=== PATIENT | female | born 1965 | race Caucasian/White ===

== ENCOUNTER 2018-01-11 22:50 | Emergency (ER) | payer BC ==
[~2018-01-11] VITALS: Ht 162.6 cm; Wt 102.7 kg
[~2018-01-11 22:50] MED LIST: BIOTPOW17 PO; SERT-234 PO; TPN; [UNRECOGNIZED DRUG - OTHER]
[2018-01-11 22:54] VITALS: TEMP 36.8; Ht 162.6 cm; Wt 102.7 kg
--- NOTE | 2018-01-11 23:35 | EMERGENCY ROOM VISIT NOTE ---
History Report prepared by Zia: Chandu Hanson Under the Supervision of: Dr. Chandni Kitchen D.O. First contact with patient: 23:05 Chief Complaint: RECTAL BLEEDING Stated Complaint: BLEEDING FROM RECTUM, COLD-FEVER, COUGH- REFERRED History of Present Illness The patient is a 52 year old female who presents to the Emergency Room with complaints of a constant hemorrhoid beginning two days ago. The patient states she went to the restroom two days ago and had bright red blood in the toilet bowl. She reports she had another episode yesterday. The patient notes she called her PCP this morning and was told to come to the ED if she had another episode today, and she did. She states she has a history of hemorrhoids, but they typically do not bleed. The patient reports she is not straining, her stool is soft, and the hemorrhoid drips blood. She notes she also has been experiencing an intermittent cough, fever, and sweating for the past three days. The patient states her was sick recently, and she would not have come to the ED for her cold symptoms alone. She denies bleeding into the underwear, standing or sitting for a long period of time, pain or discomfort to her rectum, receiving a flu shot, history of pneumonia, and a runny nose. The patient notes a history of gastric bypass surgery and pacemaker because she was bradycardic. Source of History: patient Onset: two days ago Position: other (rectum) Quality: other (hemorrhoid) Timing: constant Associated Symptoms: + fevers, + cough Note: Associated symptoms: bright red blood while defecating, soft stool, intermittent sweating Denies: straining, bleeding into the underwear, standing or sitting for a long period of time, pain or discomfort to her rectum, receiving a flu shot, a runny nose Review of Systems See HPI for pertinent positives & negatives. A total of 10 systems reviewed and were otherwise negative. Past Medical & Surgical Medical Problems: (1) Bronchitis (2) Pacemaker Surgical Problems: (1) H/O gastric bypass (2) History of cholecystectomy Family History Cancer Diabetes mellitus Gallbladder disease Heart disease Hypertension Kidney disease Kidney stones Seizures Social History Smoking Status: Never Smoker Smokeless Tobacco Use: No Alcohol Use: occasionally Marital Status: Housing Status: lives with significant other Occupation Status: employed Current/Historical Medications Scheduled Azithromycin (Zithromax), 250 MG PO DAILY Sertraline (Zoloft), 150 MG PO DAILY [Biotin], 500 MG PO DAILY Miscellaneous Medications [Erasmo] [Tpn] Allergies Coded Allergies: Sulfamethoxazole w/Trimethoprim (Verified Allergy, Unknown, ., 02/05/16) Morphine (Verified Adverse Reaction, Unknown, nausea, 02/05/16) Physical Exam Vital Signs Date Time Temp Pulse Resp B/P (MAP) Pulse Ox O2 Delivery O2 Flow Rate FiO2 01/12/18 00:03 68 18 126/71 95 01/11/18 22:54 36.8 74 20 150/80 96 Room Air Physical Exam HEENT: Head - normocephalic and atraumatic Pupils are equal, round, and reactive to light. Extraocular eye muscles are intact, and sclera are anicteric. Nose - moist nasal mucosa without discharge. Mouth - moist buccal mucosa. Oropharynx is nonerythematous with significant, thick, yellow mucus in the posterior oropharynx, and there is no tonsillar exudate or edema noted. Ears - Normal TMs bilaterally. Neck: Supple; no JVD, nuchal rigidity, cervical lymphadenopathy. Heart: Regular rate and rhythm. There is a normal S1 and S2 with no murmurs, clicks, or gallops appreciated. Lungs: Clear to auscultation bilaterally with no wheezes, rales, or rhonchi. Abdomen: Soft, completely nontender, nondistended, with good bowel sounds. There are no palpable pulsatile masses or hepatosplenomegaly. There is no guarding, rigidity, or rebound noted. Rectal: One small external hemorrhoid that is not bleeding. On digital exam she has multiple internal hemorrhoids with a blood clot. Extremities: No evidence of cyanosis, clubbing, or edema. There are easily palpable peripheral pulses. Skin: warm and dry with good turgor and no rashes. Medical Decision & Procedures ER Provider Diagnostic Interpretation: X-ray results as stated below per interpretation by me: Two View Chest X-Ray per my interpretation: pacemaker. No pulmonary infiltrate or pulmonary effusion. Medications Administered Medications (Trade) Dose Ordered Sig/Mark Anthony Route Start Time Stop Time Status Last Admin Dose Admin Azithromycin (Zithromax Tab) 500 mg NOW STAT PO 01/11/18 23:53 01/11/18 23:54 DC 01/11/18 23:59 500 MG Procedure 2353: Ordered Azithromycin 500mg PO ED Course 2310: Past medical records reviewed. The patient was evaluated in room A12B. A complete history and physical exam was performed. The patient went for a chest x-ray which was unremarkable. 2341: Upon reevaluation, the patient is resting comfortably. I discussed findings and results with the patient. She verbalized agreement of the treatment plan. The patient will be discharged home when she receives her medication. 2353: Ordered Azithromycin 500mg PO Medical Decision The patient is a 52 year old female who presents to the ED with a constant hemorrhoid beginning three days ago. Differential diagnosis includes bleeding hemorrhoids, lower GI bleeding, URI, pneumonia, bronchitis. This is a 52-year-old female patient who presents to the emergency department primarily for hemorrhoidal bleeding. Patient also mentions that she has been sick for the past 1 week with significant cough and persistent fever. On physical exam, the patient had one external hemorrhoid which was not bleeding. She did have palpable internal hemorrhoids on digital exam. As for the upper respiratory symptoms, the patient had a normal chest x-ray and still had significant yellow postnasal drip. Because she is still mounting a fever with a cough and a significant yellow, thick postnasal drip. I will start her on antibiotics. She was given a first dose of Zithromax and will continue a Z- Chencho. I have asked the patient to avoid straining at all. She should do warm soaks or sitz baths over the next couple of days. I have asked her to follow- up with her tree surgeon if the hemorrhoidal bleeding continues by Tuesday. If the bleeding becomes heavier at any time, she was directed to return here to the ER. Medication Reconcilliation Current Medication List: was personally reviewed by me Blood Pressure Screening Patient's blood pressure: Normal blood pressure Blood pressure disposition: Did not require urgent referral Impression Primary Impression: Bronchitis Additional Impression: Bleeding hemorrhoid Scribe Attestation The scribe's documentation has been prepared under my direction and personally reviewed by me in its entirety. I confirm that the note above accurately reflects all work, treatment, procedures, and medical decision making performed by me. Departure Information Dispostion Home / Self-Care Prescriptions Azithromycin (ZITHROMAX) 250 Mg Tab 250 MG PO DAILY, #4 TAB Prov: Chandni Kitchen D.O. 01/11/18 Referrals Starla Reyes D.O. (PCP) Forms HOME CARE DOCUMENTATION FORM, IMPORTANT VISIT INFORMATION, WORK / SCHOOL INSTRUCTIONS Patient Instructions Bronchitis Acute, Hemorrhoids, Hemorrhoids Self Care, [facility] Additional Instructions Rest. No excessive standing. Do warm soaks or sitz bath twice a day. Follow up on Tuesday with GI if the bleeding persists. zithromax - 1 tab. daily for next 4 days Problem Qualifiers
[2018-01-11] MEDS ORDERED: AMOXICILLIN/CLAVULANATE TAB 875 MG TAB PO ONE (23:45)
[2018-01-11] MEDS ORDERED: AZIT250T PO (23:52)
[2018-01-11] MEDS ORDERED: AZITHROMYCIN 250 MG TAB PO STA (23:53)
[2018-01-12 00:03] VITALS: BP 126/71; PULSE 68; O2SAT 95
--- NOTE | 2018-01-12 07:15 | DIAGNOSTIC IMAGING REPORT ---
CHEST 2 VIEWS ROUTINE CLINICAL HISTORY: 52 years-old Female presenting with cough. TECHNIQUE: PA and lateral views of the chest were obtained. COMPARISON: 07/27/2013. FINDINGS: Left subclavian pacer with leads to the right atrium and right ventricular apex. Cardiac silhouette normal in size. Lungs and pleural spaces clear. Osseous structures normal. Cholecystectomy clips noted. IMPRESSION: 1. No acute cardiopulmonary disease. Electronically signed by: Jose Lr M.D. 01/12/2018 7:14 AM Dictated Date/Time: 01/12/2018 7:13 AM
== END 2018-01-12 00:05 | disposition home or self-care (01) ==
LOC: C.EDB 22:50 → C.EDA 01-12 00:05
DX: J40 Bronchitis, not specified as acute or chronic (principal); K64.9 Unspecified hemorrhoids; Z83.3 Family history of diabetes mellitus; Z82.49 Family history of ischemic heart disease and other diseases of the circulatory system; Z82.0 Family history of epilepsy and other diseases of the nervous system; Z88.8 Allergy status to other drugs, medicaments and biological substances

== ENCOUNTER 2019-06-28 12:05 | Inpatient (IN) ==
--- NOTE | 2019-06-27 11:45 | Anesthesiology Consultation ---
Date of Service June 27, 2019 Assessment & Plan (1) Encounter for pre-operative examination: Chart Review Chart Review: Acceptable Risk for Surgery and Patient NOT seen in Pre Admission Testing Consults Requested none History Surgery Operation Date: 06/28/19 08:35 Proposed Procedures p Left Patella Fracture Open Reduction Internal Fixation - Jose Mckenzie MD Height/Weight Height: 5 ft 4 in Weight: 97.069 kg Allergies Allergy/AdvReac Type Severity Reaction Status Date / Time Bactrim Allergy Unknown . Verified 02/05/16 09:38 sulfamethoxazole Allergy Unknown DOES NOT Verified 06/27/19 11:11 EXACT REACTION trimethoprim Allergy Unknown . 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 SMYTH Anxiety Bradycardia Depression Past Family History Family History Son Diabetes Father Diabetes Grandmother (Maternal) Diabetes Grandfather (Paternal) Diabetes Other Cancer Heart disease Hypertension Kidney disease Past Surgical History Surgical History H/O exploratory laparotomy X 2 AFTER GASTRIC BYPASS History of anesthesia reaction SLOW TO WAKE UP History of bilateral tubal ligation History of carpal tunnel release RT/LEFT History of cholecystectomy History of colonoscopy History of endometrial ablation History of esophagogastroduodenoscopy (EGD) History of surgery REVERSAL GASTRIC BYPASS APRIL 2014 [facility] History of tooth extraction Hx of gastric bypass 2010 Social History Smoking Status: Never smoker Do You Dip or Chew Tobacco: No Hx Alcohol Use: Yes Alcohol type: beer alcohol intake frequency: a few times a month Hx Substance Use: No substance use type: does not use Testing Laboratory Results Laboratory Tests 06/26/19 06/26/19 15:36 15:36 WBC 9.51 Hgb 13.4 Hct 41.1 Plt Count 247 Sodium 139 Potassium 3.8 Chloride 108 H Carbon Dioxide 27 BUN 13 Creatinine 0.71 Glucose 87 Electrocardiogram Date: 06/27/19 Atrial-paced rhythm with prolonged AV conduction at rate of 90, low voltage QRS, when compared with ECG from 05/03/2009 rhythm is now paced. Stress Test Date: 02/21/14 Type: exercise Findings: + WNL Resting LV Function: normal Resting RWMA: + none Other Testing Devise interrogation 02/28/19 - Normal dual chamber pacemaker function. Stable pacing and sensing thresholds. DDD, lower rate 60 bpm and upper rate 150 bpm, atrially paced about 22%, 6 years of battery life left.
[~2019-06-28 12:05] MED LIST changes: -BIOTPOW17 PO; +CEFAZOLIN 2000MG 2,000 MG/15 ML SYR IV SCH; +LR 15ML/HR IV SCH; +LR 60ML/HR IV SCH; -SERT-234 PO; -TPN; -[UNRECOGNIZED DRUG - OTHER]
[2019-06-28] MEDS ORDERED: MIDAZOLAM HCL 1 MG/ML 2ML VIAL ONE (12:53)
--- NOTE | 2019-06-28 14:15 | History & Physical Bridge Note ---
Date of Service June 28, 2019 History & Physical Bridge Note I have examined the patient, reviewed the History & Physical and in the interval since the performance of the History & Physical I have noted the following changes of clinical significance: patient had a CT scan done which showed significant comminution of the inferior patella fracture fragment. Discussed with patient that this may not be amenable to fixation due to the comminution and her bone quality, in which case we will excised the inferior pole fragments and do a patellar tendon advancement. She understands and agrees with this plan. No changes to her medical history.
[2019-06-28] MEDS ORDERED: BUPIVACAINE 0.5 % 5 MG/1 ML PF 10ML VIAL ONE (14:29)
[2019-06-28] MEDS ORDERED: BUPIVACAINE/EPINEPHRINE 0.5% MPF 1:200,000 30 ML VIAL ONE (14:58)
[2019-06-28] MEDS ORDERED: ePHEDrine sulfate 50 MG/ML AMP IV PRN (15:09)
[2019-06-28] MEDS ORDERED: ATROPINE SULFATE 0.1 MG/ML 10ML SYR IV PRN (15:09)
[2019-06-28] MEDS ORDERED: ONDANSETRON INJ 2 MG/ML 2 ML VIAL ONE (15:40)
[2019-06-28] MEDS ORDERED: PROPOFOL IV EMULSION 10 MG/ML 20 ML VIAL IV ONE (15:40)
[2019-06-28] MEDS ORDERED: ePHEDrine sulfate 50 MG/ML AMP ONE (15:40)
[2019-06-28] MEDS ORDERED: PHENYLEPHRINE HCL 10 MG/ML VIAL ONE (15:40)
--- NOTE | 2019-06-28 16:25 | Fluoroscopy Report ---
FL knee LT 1 or 2V CLINICAL HISTORY: Left patellar fracture COMPARISON STUDY: 06/23/2019 FLUOROSCOPY TIME: 7 seconds. NUMBER OF FLUOROSCOPIC IMAGES: 2 FINDINGS: 2 fluoroscopic spot images reveal a patellar fracture. The inferior patellar fragment is no t visualized. IMPRESSION: Intraoperative fluoroscopic spot images demonstrating a patellar fracture. The inferior patellar fragment is not visualized Electronically signed by: Bhavin Tillman M.D. 06/28/2019 4:24 PM
--- NOTE | 2019-06-28 16:33 | Post Operative Brief Note ---
Immediate Post Op Note v1 Date of Surgery June 28, 2019 Pre & Post Diagnosis Operation Date: 06/28/19 08:35 Pre-Op Diagnosis: Left Comminuted Patella Fracture Post-Op Diagnosis: Left Comminuted Patella Fracture Procedure Operation Date: 06/28/19 08:35 Actual Procedures p Left Partial patellectomy, patellar tendon advancement and repair (Left) - Jose Mckenzie MD Surgeon Jose Mckenzie MD Rail [employer] Tabeler TIMOTEO Mcgee PA-C Estimated Blood Loss 50 Findings Consistent with Post-Op Diagnosis Fluids 1100 cc Anesthesia Type Spinal MAC Complications none Disposition Accompanied Patient To Recovery: No
[2019-06-28] MEDS ORDERED: DiphenhydrAMINE HCL 50 MG/ML VIAL IV PRN (16:47)
[2019-06-28] MEDS ORDERED: ALUMINUM/MAGNESIUM SUSP 30 ML UDC PO PRN (16:47)
[2019-06-28] MEDS ORDERED: ONDANSETRON INJ 2 MG/ML 2 ML VIAL IV PRN ×2 (16:47→22:02)
--- NOTE | 2019-06-28 17:07 | Anesthesiology Progress Note ---
Date of Service June 28, 2019 Anesthesia Post Procedure Vital Signs Vital Signs: Temp Pulse Pulse Resp BP Pulse Ox 06/28/19 17:00 71 16 133/86 96 06/28/19 16:50 60 15 123/62 100 06/28/19 16:43 36.4 C L 91 H 17 131/83 96 06/28/19 12:47 36.7 C 64 18 126/74 94 Pain Intensity Left Knee: Pain Intensity: 3 Transfer of Care Handoff Completed per policy Notes Mental Status: alert / awake / arousable and participated in evaluation Patient Amnestic to Procedure: Yes Nausea / Vomiting: adequately controlled Pain: adequately controlled Airway Patency, RR, SpO2: stable & adequate BP & HR: stable & adequate Hydration State: stable & adequate Neuraxial Anesthesia: was administered and sensory block is resolving Anesthetic Complications: no major complications apparent and Pt Satisfied with anesthetic care
--- NOTE | 2019-06-28 18:43 | Operative Report ---
Post Operative Report Pre & Post Diagnosis Operation Date: 06/28/19 08:35 Pre-Op Diagnosis: Left Comminuted Patella Fracture Post-Op Diagnosis: Left Comminuted Patella Fracture Procedure Operation Date: 06/28/19 08:35 Actual Procedures p Partial patellectomy with patellar tendon advancement and repair.(Left) - Jose Mckenzie MD Surgeon Jose Mckenzie MD Television Maintenance Man TIMOTEO Mcgee PA-C Estimated Blood Loss 50 Findings Consistent with Post-Op Diagnosis Specimens none Complications none Disposition Accompanied Patient To Recovery: Yes Disposition: Recovery Room Description of Procedure I was present during the entire procedure assisting with wound closure, dressing and brace application. Please see Dr. Mckenzie procedure note for specifics fo the case. I attest to the content of the Intraoperative Record and any orders documented therein. Any exceptions are noted below.
[2019-06-28] MEDS: SODIUM CHLORIDE 0.9% 1000ML 1,000 ML IV SCH (19:00)
[2019-06-28] MEDS: OXYCODONE/ACETAMINOPHEN 5mg/325mg TAB PO PRN (19:40)
[2019-06-28] MEDS: HYDROmorphone INJ 2 MG/ML SYR/VIAL IV PRN (20:38)
[2019-06-28] MEDS: ASPIRIN 81 MG ECTAB PO SCH (20:43)
[2019-06-28] MEDS: DOCUSATE SODIUM 100 MG CAP PO SCH (20:44)
[2019-06-28] MEDS: SERTRALINE HCL 50 MG TABLET PO SCH (20:44)
[2019-06-28] MEDS: CEFAZOLIN 2000MG 2,000 MG/15 ML SYR IV SCH (20:44)
[2019-06-28] MEDS ORDERED: ONDANSETRON INJ 2 MG/ML 2 ML VIAL IV STA (21:58)
[2019-06-28] MEDS ORDERED: METOCLOPRAMIDE HCL INJ 5 MG/ML 2 ML VIAL IV PRN (21:59)
[2019-06-28] MEDS ORDERED: ONDANSETRON HCL 8 MG in DEXTROSE 5% 50 ML IV PRN (22:19)
--- NOTE | 2019-06-28 23:59 | Operative Report ---
DATE OF OPERATION: 06/28/2019 PREOPERATIVE DIAGNOSIS: Comminuted left patellar fracture. POSTOPERATIVE DIAGNOSIS: Comminuted left patellar fracture. OPERATION PERFORMED: Partial patellectomy with patellar tendon advancement of the left knee. SURGEON: Jose Mckenzie M.D. HOLDER PILE DRIVING: Darius Mcgee PA-C ESTIMATED BLOOD LOSS: 50 mL. INTRAVENOUS FLUIDS: 1100 mL crystalloid. SPECIMENS: None. COMPLICATIONS: None. IMPLANTS: #2 [place] wire and a #2 FiberWire suture. INDICATIONS: Ms. Doan is a 53-year-old female who was working at a [employer] this past weekend when she slipped on what she believes was a piece of glass and fell directly onto her flexed left knee. She had immediate onset of pain and inability to extend her knee or ambulate. She was brought to the Emergency Room where x-rays demonstrated a patellar fracture with comminution of the inferior pole. I saw her in clinic and obtained a CT scan which showed a significant comminution of the inferior pole fragment. I had a long discussion with her about the risks and benefits of surgery, alternatives to surgery and expected outcomes. After reviewing all these, she elected to proceed with surgery. All questions were answered. Informed consent was signed. OPERATIVE FINDINGS: The inferior pole of the patella was comminuted with a large split in the sagittal plane as well as axial plane split to a smaller magnitude. The proximal fragment contained approximately 60-65% of articular surface. I therefore excised the inferior fragment and advanced her patellar tendon into the proximal pole of the patella. The retinaculum was torn medial and laterally. This was repaired with 0 Vicryl sutures. DESCRIPTION OF OPERATION: The patient was identified in the preoperative holding area Where her surgical site was marked. She was given a spinal by anesthesia and brought back to main operating room where she was placed on the operating room table and general anesthesia was administered. A bump was placed underneath the operative hip. All bony prominences were padded. Perioperative antibiotics were administered. She was prepped and draped in normal sterile fashion. Prior to incision, multidisciplinary time-out was called. All in the room were in agreement. We began by making a midline incision for a distance of approximately 10 cm starting from 2 cm above the superior pole of the patella and extending down to the tibial tubercle. We dissected down through subcutaneous tissues to the level of the fascia. There was immediate return of hematoma from the joint. This was evacuated with the suction. We then lifted full-thickness skin flaps above the fascia to expose the retinacular tear medially and laterally. The quadriceps and patellar tendon were exposed as was the fracture. We then carefully inspected the inferior pole of the patella. As stated above, there was extensive comminution to the point where I was concerned that we would not be able to get adequate bony fixation. Furthermore, she had adequate articular surface remaining on her proximal pole fragment. I felt it was in the patient's best interest to remove the comminuted inferior pole fragment and so this is what was done sharply. Once all bone fragments from the inferior pole had been removed, we then trimmed up the edges of the patellar tendon, which were very healthy. I then ran a #2 Denver wire in a running [place] fashion starting on the lateral aspect of the patellar tendon down for a distance of approximately 3 cm and then ran it back up the midportion of the patella with the suture exiting through the midportion of the patellar tendon. I then opened up the #2 FiberWire and placed this in similar fashion on the lateral aspect as well as with another limb ending up in the middle portion of the patellar tendon. Great care was taken to ensure that the [place] sutures were completely tensioned. I then used a drill bit to drill from the fractured portion of the proximal pole fragment up through the superior aspect of the patella. The drill was located just below the more superficial cortical surface where the drill bit came out through the quadriceps tendon. A small longitudinal incision was made in line with the quadriceps tendon fibers. A Hewson suture passer was used as well as the suture to pass the 2 middle sutures up through the patella and exiting the quad tendon. I then placed another drill hole, 1 medially and 1 laterally in a similar fashion, passed the other TigerWire, another FiberWire. At this point, a snap was used to tunnel underneath the quadriceps tendon and bring both limbs of both sutures out through the middle portion of the quadriceps tendon. The knee was then brought into full extension. With no tension on the repair, I then tied the sutures down sequentially, first the FiberWire, then the TigerWire. I then tied these sutures to each other for additional fixation. Next, the retinacular tear was repaired with multiple interrupted 0 Vicryl sutures in [id number] fashion. These were then cut. We then checked our repair. She could easily get to 60 degrees of knee flexion without any undue strain on the repair. At this point, the wound was irrigated with copious amounts of normal saline. The meticulous hemostasis was ensured. We did also irrigate with a dilute Betadine solution. I then ran the deep dermal layer with 2-0 Vicryl suture. A 3-0 Monocryl was used for the skin. 20 mL of 0.5% Marcaine with epinephrine was then injected in the subcutaneous tissues. She was then placed into a sterile dressing with Steri-Strips, Silverlon and a compressive wrap from the toes to the thigh. She was then placed in a hinged knee brace locked in full extension. The range of motion setting was adjusted from 0-30 degrees on the brace. The patient was then awoken from anesthesia and transferred to recovery room in stable condition. POSTOPERATIVE COURSE: The patient will be admitted overnight for pain control and monitoring. She will work with physical therapy tomorrow. She will be weightbearing as tolerated with a hinged knee brace locked in full extension for the next 6 weeks. For the first 2 weeks, she will be range of motion 0-30 degrees. For the next 2 weeks from weeks 2-4, she will be 0-60 degrees and from weeks 4-6 she will be from 60-90 degrees. After 6 weeks, she will be allowed 90-120 degrees and be able to unlock the brace. She will then be able to discontinue the brace after week 8. She will be on aspirin for DVT prophylaxis. I attest to the content of the Intraoperative Record and any orders documented therein. Any exception s are noted below.
[2019-06-29] MEDS: OXYCODONE/ACETAMINOPHEN 5mg/325mg TAB PO PRN ×2 (00:02→04:07)
[2019-06-29] MEDS: HYDROmorphone INJ 2 MG/ML SYR/VIAL IV PRN ×2 (02:07→06:35)
[2019-06-29] MEDS: SODIUM CHLORIDE 0.9% 1000ML 1,000 ML IV SCH ×3 (04:07→20:13)
[2019-06-29] MEDS: CEFAZOLIN 2000MG 2,000 MG/15 ML SYR IV SCH ×2 (04:07→13:12)
[2019-06-29] MEDS: ACETAMINOPHEN 500 MG TAB PO PRN ×2 (07:42→12:06)
--- NOTE | 2019-06-29 08:11 | Anesthesiology Progress Note ---
Date of Service June 29, 2019 Anesthesia Post Procedure Vital Signs Vital Signs: Temp Pulse Pulse Resp BP BP Pulse Ox 06/29/19 07:02 36.9 C 91 H 16 164/85 H 90 06/29/19 03:25 36.9 C 87 16 148/82 H 94 06/28/19 23:40 36.8 C 62 16 138/74 92 06/28/19 20:32 37 C 65 16 171/82 H 91 06/28/19 18:37 36.8 C 58 L 16 104/66 94 06/28/19 18:05 36.3 C L 06/28/19 18:02 60 15 144/78 H 96 06/28/19 17:31 36.5 C 60 15 121/81 95 06/28/19 17:15 36.7 C 60 16 103/77 96 06/28/19 17:00 71 16 133/86 96 06/28/19 16:50 60 15 123/62 100 06/28/19 16:43 36.4 C L 91 H 17 131/83 96 06/28/19 12:47 36.7 C 64 18 126/74 94 Pain Intensity Left Knee: Pain Intensity: 3 Notes Mental Status: alert / awake / arousable and participated in evaluation Patient Amnestic to Procedure: Yes Nausea / Vomiting: adequately controlled Pain: adequately controlled Airway Patency, RR, SpO2: stable & adequate BP & HR: stable & adequate Hydration State: stable & adequate Neuraxial Anesthesia: was administered and sensory block resolved Anesthetic Complications: no major complications apparent and Pt Satisfied with anesthetic care
[2019-06-29] MEDS: KETOROLAC 30 MG/ML VIAL IV PRN ×3 (08:28→21:27)
[2019-06-29] MEDS: DOCUSATE SODIUM 100 MG CAP PO SCH ×2 (10:18→21:24)
[2019-06-29] MEDS: MULTIVITAMIN TAB PO SCH (10:18)
[2019-06-29] MEDS: ASPIRIN 81 MG ECTAB PO SCH ×2 (10:18→21:24)
--- NOTE | 2019-06-29 10:50 | Orthopedic Progress Note ---
Date of Service June 29, 2019 Assessment & Plan (1) S/P ORIF (open reduction internal fixation) fracture: PT/OT Ice with EZ wrap WBAT with brace locked in extension May unlock to allow for 30 degrees of flexion when sitting/laying Keep dressing in place DVT prophy with TEDs and Aspirin Will plan on discharge tomorrow Follow up at [facility] as scheduled With questions call Subjective This 53 yo F is day 1 s/p Partial Left patellectomy with patellar tendon advancement and repair. Patient states that the pain meds she was give is not alleviating her pain significant. Nausea controlled with IV Zofran. Pt states that she would like to stay inpatient for 1 additional night to be sure that her pain is controlled. She denies CP, SOB, fever, chills, sweats or numbness/tingling in left LE. Review of Systems Review of Systems: All systems reviewed & are unremarkable except as noted in HPI & below Physical Exam Physical Exam: Left knee: dressing clean, dry and intact. Brace properly in place set for 30 degrees of flexion. Mild edema and TTP over anterior knee. Unable t perform SLRT. Referred quad pain with active dorsi/plantar flexion of foot. Calf soft and supple. NV intact. Periph pulses palpable. Cap refill < 2 seconds. Results & Data Vital Signs (Past 12 Hours) Vital Signs Temp Pulse Resp BP Pulse Ox 06/29/19 07:02 36.9 C 91 H 16 164/85 H 90 06/29/19 03:25 36.9 C 87 16 148/82 H 94 06/28/19 23:40 36.8 C 62 16 138/74 92
[2019-06-29] MEDS: OXYCODONE HCL IR 5 MG TAB (IMMEDIATE RELEASE) PO PRN ×3 (13:12→21:24)
[2019-06-29] MEDS: SERTRALINE HCL 50 MG TABLET PO SCH (21:24)
[2019-06-30] MEDS: HYDROmorphone INJ 2 MG/ML SYR/VIAL IV PRN (00:07)
[2019-06-30] MEDS: OXYCODONE HCL IR 5 MG TAB (IMMEDIATE RELEASE) PO PRN (03:32)
[2019-06-30] MEDS: SODIUM CHLORIDE 0.9% 1000ML 1,000 ML IV SCH (05:46)
[2019-06-30] MEDS: KETOROLAC 30 MG/ML VIAL IV PRN ×2 (07:34→13:22)
[2019-06-30] MEDS: MULTIVITAMIN TAB PO SCH (09:05)
[2019-06-30] MEDS: ASPIRIN 81 MG ECTAB PO SCH (09:05)
[2019-06-30] MEDS: DOCUSATE SODIUM 100 MG CAP PO SCH (09:05)
[2019-06-30] MEDS: ACETAMINOPHEN 500 MG TAB PO PRN (13:22)
--- NOTE | 2019-07-02 09:54 | Discharge Summary ---
Date of Service July 02, 2019 Admission HPI Per Admitting Provider This 53 yo white female present to office for preop H&P. She is scheduled to undergo a left knee patellar fracture open reduction internal fixation on 03/28/19 at the [facility] as an inpatient. Left knee injury occurred on Tuesday06/23/19 after slipping on floor while at work and landed on the Left knee. She states that there was a crunching feeling and sound. The floor was ceramic. There was immediate onset of pain. Swelling developed. She was seen in the ED and had x-rays obtained. They confirmed a patellar fracture. No prior history of significant knee injury. She is currently in a wheelchair and a knee immobilizer. She has no other complaints. No other treatment other than ice, elevation and Percocet. Admission Exam Per Admitting Provider General: Well-developed, well-nourished, middle-aged white female in no acute distress. Sitting on a wheelchair. Alert and oriented. Vitals: Temp 36.8, pulse 68, BP 126/72, O2 Sat 95% on room air, height 162cm, BMI 37. Skin: Warm and dry with good turgor. No rashes or lesions. No ecchymosis or erythema. Intraarticular effusion at left knee. HEENT: Normocephalic, atraumatic. Eyes: PERRLA, EOMI. Nares patent bilaterally without turbinate enlargement. Oropharynx without erythema or exudate, no lesions noted. Uvula midline, oral mucosa moist, denture plates noted. Heart: RRR, no MGR. Lungs: clear to auscultation bilaterally. No crackles, rhonchi or wheezing. Good air movement. Abdomen: obese, bowel sounds present x4, soft, non-tender. No organomegaly. No masses. Musculoskeletal: Left knee ROM not attempted. Intraarticular effusion as stated. Discomfort with palpation around patella. Intact motor function of ankle and toes. Neurologic: Gross sensation intact across left lower extremity by soft touch. Periph pulses are 2+. Principal Diagnosis Left knee patellar fractrue Discharge Exam Left knee: dressing clean, dry and intact. Brace properly in place set for 30 degrees of flexion. Mild edema and TTP over anterior knee. Unable t perform SLRT. Referred quad pain with active dorsi/plantar flexion of foot. Calf soft and supple. NV intact. Periph pulses palpable. Cap refill < 2 seconds. Discharge Data Allergies Allergy/AdvReac Type Severity Reaction Status Date / Time Bactrim Allergy Unknown . Verified 02/05/16 09:38 sulfamethoxazole Allergy Unknown DOES NOT Verified 06/28/19 12:40 EXACT REACTION trimethoprim Allergy Unknown . Verified 06/28/19 12:40 morphine AdvReac Mild nausea Verified 06/28/19 12:40 Procedures Performed Operation Date: 06/28/19 08:35 Actual Procedures p Partial patellectomy with patellar tendon advancement and repair.(Left) - Jose Mckenzie MD Ordered Studies 06/28/19 05:00 US - OR guided needle placemen Routine 06/28/19 13:00 FL fluoroscopy <1hr Routine FL knee LT 1 or 2V Routine Hospital Course (1) S/P ORIF (open reduction internal fixation) fracture: Patient had nausea and was not able to tolerated oral pain meds. Was controlled with IV meds. Post op day 1 nausea controlled with zofran and pt tolerated oral pain meds. Wished to stay an additional night for pain control. Discharged home Tuesday AM. PT/OT Ice with EZ wrap WBAT with brace locked in extension May unlock to allow for 30 degrees of flexion when sitting/laying Keep dressing in place DVT prophy with TEDs and Aspirin Will plan on discharge tomorrow Follow up at [facility] as scheduled With questions call Total Time Total Time Spent Total Time Spent (In Minutes): 20 mins Total Time Includes: Examination of the Patient, Discharge Planning and Medication Reconciliation Discharge Plan Discharge Items Patient Disposition: Home - Self-Care Reason For Visit: Left Comminuted Patella Fracture Discharge Diagnosis: Comminuted left patellar fracture Discharge Goals: Decrease discomfort, Improve function and Increase independence Activity: As commented below Lifting: None Bathing: Keep incision dry Bathing Comment: May shower tomorrow Sexual Activity: Wait until after follow-up appointment Exercise/Sports: Wait until after follow-up appointment Driving/Machine Use Comment: No driving until cleared by energy efficiency specialist Weightbearing: Left weightbearing Weightbearing Comment: as tolerated with brace locked in extension with ambulatory aid Non-emergency contact: Primary Care Provider Call non-emergency contact if: you have any medication questions, your pain is not controlled, your temperature is above 101.5, your wound has increased drainage and your wound pain has increased Follow-up/Referrals: Starla Reyes DO [Primary Care Provider] - Diet: Regular Addtl Provider Instructions: Post-operative Instructions Dear Patient and Family/Friends, Before you are discharged from the hospital, it is important to know what to expect when you get home after surgery. To that end, we have created this sheet of discharge instructions which covers many commonly asked questions. Make sure you go through this sheet in its entirety with your nurse before you are discharged. Please note that we will go over the specifics of your surgery and recovery when you return for your first post-operative visit. Sincerely, Dr. Mckenzie Medications 1. You will need to purchase 81mg Aspirin to take 2 times daily for 30 days post operatively 2. Oxycodone 5 mg: take 1-2 tabs by mouth every 4-6 hrs as needed for pain relief 3. Diclofenac Sodium 75 mg: this will be sent to your pharmacy. Take 1 tab by mouth twice daily for 30 days post operatively 4. Purchase extra Strength Tylenol: Take 2 tabs with every other dose of the Oxycodone. After you have finished the Oxy, then take the Tylenol every 6 hrs as needed for pain relief. Pain Expect to be in a fair amount of pain after surgery. Remember, our goal is not to eliminate your pain, but to make it tolerable. It is a good idea to stay ahead of your pain by taking the medications you were prescribed once you get home. Typically, the pain starts improving 3-7 days after surgery. You should start weaning off the narcotic pain medication (oxycodone, hydrocodone, hydromorphone, morphine) as soon as your pain improves. Please call our office if your pain is not adequately controlled. Ice Ice your operative site at least 5 times a day for 15-30 minutes at a time. Make sure you have a thin cloth between the ice or cooling unit and your skin to prevent desai bite. This is especially important if you received a nerve block. Continue icing your operative site for the first 5-7 days after surgery, then as needed. Diet/Nausea/Vomiting Start by drinking clear liquids and eating crackers. If you can tolerate this, then you may resume your normal diet. If you feel nauseated or vomit, take Zofran/ondansetron (if prescribed). Please call our office if you have intr actable nausea or vomiting, or, if after hours, you may go to the Emergency Room for help. Constipation Constipation is a common side effect of narcotic pain medication. If you have not had a bowel movement within 2 days after surgery, we recommend purchasing an over the counter laxative such as Milk of Magnesia, Dulcolax, or Miralax from a local pharmacy, and taking it as instructed. Call our clinic if any questions. Slings and Braces If you were placed in a sling or brace, it must be worn at all times, including sleep. You may remove your sling or brace for physical therapy, home exercises, and showering. The length of time you will be in your brace and range of motion restrictions depends on what surgery you had; these details will be reviewed at your first post-operative appointment. Nerve block The anesthesia team sometimes places a nerve block to help with post-operative pain control. This results in significant numbness and inability to move the extremity. The nerve block usually wears off in 8-12 hours, but sometimes can last up to 24 hours. Please call our office if you are still unable to move your extremity after 24 hours, unless you received a pain pump to take home. Nerve blocks typically wear off quickly, so start taking pain medication as soon as you start feeling soreness near your surgical site. Weight bearing and Range of Motion. Do not bear any weight through your operative extremity immediately after surgery. If you had upper extremity surgery, do not lift anything with that arm. If you are in a knee brace, keep it locked in place until your follow-up. We will discuss your weight bearing, range of motion, and lifting restrictions in detail at your first post-operative appointment. Continuous Passive Motion (CPM) Machine If you were prescribed a CPM machine, it will start after your first post- operative appointment, at which time we will give you instructions on the range of motion settings and duration of treatment Physical therapy You will be given a prescription for physical therapy or occupational therapy at your first post-operative appointment. Typically, patients start therapy within 1 week of surgery Wound care and showering We will inspect your wound at your first post-operative visit, and may do a dressing change at that time. Most patients will be in a water-proof dressing that is removed 14 days after surgery. It is normal to see some dried blood on the dressing. Do not remove your dressing, paper strips or sutures yourself unless you are given permission. Showering is allowed the day after surgery. Do not scrub or remove any dressings. The wound should not be submerged underwater (i.e. in a bathtub or pool) until 4 weeks after surgery JEMAL stockings If you were given white stockings, these are to be worn at all times except to shower (on both legs) for the first 2 weeks after surgery. Driving You may not drive while taking narcotic pain medication or while in a cast, splint, sling or brace. You, the patient, need to make the final determination about when you are safe to drive, however, the earliest you may consider driving after surgery is below: Hand/Wrist/Elbow Surgery: 3 days Shoulder Surgery: 2 weeks Hip,/Knee/Ankle Surgery: 4 weeks Fracture repair: 6 weeks Return to Work Your return to work depends on what surgery was done and what type of work you do. Please bring any paperwork your employer needs completed to your first post-operative visit. Also, bring a description of your job duties, as this helps us to understand what risks you may face at work. Travel Avoid long distance travel (greater than 1 hour) in airplanes and cars for the first 6 weeks after surgery. If you must travel, you need to have a Doppler ultrasound done before you travel to rule out a blood clot in your legs. Follow-up You should have a follow-up appointment already scheduled 1-2 days after surgery. If not, please contact our office to make this appointment before you leave the hospital. When to call the office It is normal to have swelling and bruising in the limb that was operated on. This will improve with time. It is also normal to have fevers for the first 2 days after surgery. Reasons you should call your doctor include: Uncontrolled pain; Nausea, vomiting, or constipation that does not improve with medication; Fevers over 101.5, chills, sweats; Drainage or bleeding from the wound; Foul odor; Spreading areas of redness; Any other concerns Prescriptions: New diclofenac sodium 75 mg tablet,delayed release (DR/EC) 75 mg PO BID PRN (Reason: pain) 30 Days Qty: 60 RF: 1 oxycodone 5 mg tablet See Rx Instructions .ROUTE .COMPLEX PRN (Reason: pain) Qty: 30 RF: 0 Continued sertraline 25 mg Tablet 25 mg PO HS RF: 0 acetaminophen [Tylenol Extra Strength] 500 mg Tablet 1,000 mg PO Q6H PRN (Reason: Pain) RF: 0 Multivitamin Women 50 Plus 8 mg iron-400 mcg-300 mcg Tablet 1 tab PO DAILY RF: 0 Stand-Alone Forms: [employer], [facility]/Other Patient Handouts: DVT Prevent Discharge Orders: Discharge Order (Routine); Ordered 06/29/19 Ordered By: Jose Mcgee Admission Data Admit Date/Time: 06/28/19 16:47 Attending Provider: Jose Mckenzie Admit Provider: Jose Mckenzie Primary Care Provider: Starla Reyes Service: Surgical Services Other Interventions: Discharge Summary Assessment (RN) Last Done: 06/30/19 14:02 Pending Studies at Discharge: No DC Date/Time DO NOT enter until pt leaves facility: 06/30/19 14:53
== END 2019-06-30 14:53 | disposition home or self-care (01) | DRG 516 ==
LOC: ASU 12:05 → 3E 16:47